=== PATIENT | female | born 1930 | race Asian ===

== ENCOUNTER 2016-10-04 15:08 | Outpatient (CLI) | payer MEDICARE, OTHER ==
[2016-10-04 19:22] LABS: BASOPHILS # (AUTO) 0.1 10^3/uL (0.0-0.1); BASOPHILS % (AUTO) 1.4 %; EOSINOPHILS # (AUTO) 0.1 10^3/uL (0.0-0.7); EOSINOPHILS % (AUTO) 1.7 %; HCT - HEMATOCRIT 34.9 % (37.0-47.0); HGB - HEMOGLOBIN 11.8 g/dL (12.0-16.0); LYMPHOCYTES # (AUTO) 1.3 10^3/uL (1.5-3.5); LYMPHOCYTES % (AUTO) 26.5 %; MEAN CORPUSCULAR HEMOGLOBIN 29.8 pg (27.0-31.0); MEAN CORPUSCULAR HGB CONC 33.9 g/dL (32.0-36.0); MEAN CORPUSCULAR VOLUME 87.9 fL (81.0-99.0); MEAN PLATELET VOLUME 7.9 fL (7.9-10.8); MONOCYTES # (AUTO) 0.4 10^3/uL (0.0-1.0); MONOCYTES % (AUTO) 7.7 %; NEUTROPHILS # (AUTO) 3.1 10^3/uL (1.5-6.6); NEUTROPHILS % (AUTO) 62.7 %; NUCLEATED RED BLOOD CELLS AUTO 0.1 /100WBC; RED BLOOD COUNT 3.97 10^6/uL (4.20-5.40); RED CELL DISTRIBUTION WIDTH 13.7 % (12.0-15.0)
[2016-10-04 19:39] LABS: ALBUMIN/GLOBULIN RATIO 1.5 (1.0-2.2); BILIRUBIN,TOTAL 1.4 mg/dL (0.2-1.0); CALCIUM 8.6 mg/dL (8.5-10.3); POTASSIUM 3.6 mmol/L (3.5-5.0); TOTAL PROTEIN 6.9 g/dL (6.7-8.2)
[2016-10-04 20:14] LABS: HEMOGLOBIN A1C 0.46 g/dL
== END 2016-10-04 15:09 | disposition home or self-care (01) ==
LOC: LAB.WCP 15:08
PROVIDERS: ATTEND Family Medicine
DX: I48.0 Paroxysmal atrial fibrillation (principal); R73.02 Impaired glucose tolerance (oral)
CPT/HCPCS: 36415; 80053; 83036; 85025

== ENCOUNTER 2016-10-18 08:36 | Outpatient (CLI) | payer MEDICARE, OTHER ==
[2016-10-18 13:10] LABS: BASOPHILS % (AUTO) 0.9 %; EOSINOPHILS % (AUTO) 0.9 %; HCT - HEMATOCRIT 30.6 % (37.0-47.0); HGB - HEMOGLOBIN 10.5 g/dL (12.0-16.0); LYMPHOCYTES # (AUTO) 0.7 10^3/uL (1.5-3.5); LYMPHOCYTES % (AUTO) 14.4 %; MEAN CORPUSCULAR HEMOGLOBIN 29.2 pg (27.0-31.0); MEAN CORPUSCULAR HGB CONC 34.4 g/dL (32.0-36.0); MEAN CORPUSCULAR VOLUME 84.9 fL (81.0-99.0); MEAN PLATELET VOLUME 7.6 fL (7.9-10.8); MONOCYTES # (AUTO) 0.4 10^3/uL (0.0-1.0); MONOCYTES % (AUTO) 7.2 %; NEUTROPHILS # (AUTO) 3.8 10^3/uL (1.5-6.6); NEUTROPHILS % (AUTO) 76.6 %; RED CELL DISTRIBUTION WIDTH 13.1 % (12.0-15.0); UNCORRECTED WHITE BLOOD COUNT 4.9 x10^3/uL; WHITE BLOOD COUNT 4.9 x10^3/uL (4.8-10.8)
[2016-10-18 13:29] LABS: ALBUMIN/GLOBULIN RATIO 1.4 (1.0-2.2); BILIRUBIN,TOTAL 1.1 mg/dL (0.2-1.0); CALCIUM 8.7 mg/dL (8.5-10.3); CREATININE 1.3 mg/dL (0.4-1.0); POTASSIUM 3.7 mmol/L (3.5-5.0); TOTAL PROTEIN 6.6 g/dL (6.7-8.2)
== END 2016-10-18 08:37 | disposition home or self-care (01) ==
LOC: LAB.WCP 08:36
PROVIDERS: ATTEND Family Medicine
DX: I12.9 Hypertensive chronic kidney disease with stage 1 through stage 4 chronic kidney disease, or unspecified chronic kidney disease (principal); N18.9 Chronic kidney disease, unspecified
CPT/HCPCS: 36415; 80053; 85025

== ENCOUNTER 2017-03-28 15:00 | Outpatient (CLI) | payer MEDICARE, OTHER | END 2017-03-28 15:01 | disposition home or self-care (01) | LOC: LAB.WCP 15:00 | PROVIDERS: ATTEND Family Medicine | DX: M10.9 Gout, unspecified (principal) | CPT/HCPCS: 36415; 84550 ==

== ENCOUNTER 2017-05-29 16:20 | Outpatient (CLI) | payer MEDICARE, OTHER ==
[2017-05-29 19:51] LABS: HGB - HEMOGLOBIN 10.8 g/dL (12.0-16.0); LYMPHOCYTES # (AUTO) 0.7 10^3/uL (1.5-3.5); LYMPHOCYTES % (AUTO) 16.1 %; MEAN CORPUSCULAR HEMOGLOBIN 29.7 pg (27.0-31.0); MEAN CORPUSCULAR HGB CONC 32.6 g/dL (32.0-36.0); MEAN PLATELET VOLUME 8.4 fL (7.9-10.8); MONOCYTES # (AUTO) 0.2 10^3/uL (0.0-1.0); MONOCYTES % (AUTO) 5.4 %; NEUTROPHILS # (AUTO) 3.5 10^3/uL (1.5-6.6); NEUTROPHILS % (AUTO) 77.5 %; PLT - PLATELET COUNT 204 10^3/uL (130-450); RED BLOOD COUNT 3.63 10^6/uL (4.20-5.40); RED CELL DISTRIBUTION WIDTH 18.9 % (12.0-15.0); WHITE BLOOD COUNT 4.5 x10^3/uL (4.8-10.8)
[2017-05-29 20:21] LABS: ALBUMIN 4.1 g/dL (3.2-5.5); ALBUMIN/GLOBULIN RATIO 1.4 (1.0-2.2); BILIRUBIN,TOTAL 0.9 mg/dL (0.2-1.0); CALCIUM 8.9 mg/dL (8.5-10.3); CREATININE 1.9 mg/dL (0.4-1.0); TOTAL PROTEIN 7.1 g/dL (6.7-8.2)
== END 2017-05-29 16:21 | disposition home or self-care (01) ==
LOC: LAB.WCP 16:20
PROVIDERS: ATTEND Family Medicine
DX: I50.9 Heart failure, unspecified (principal); N18.9 Chronic kidney disease, unspecified; M10.9 Gout, unspecified
CPT/HCPCS: 36415; 80053; 84550; 85025

== ENCOUNTER 2017-06-26 08:00 | Outpatient (CLI) | payer MEDICARE, OTHER ==
[2017-06-26 19:14] LABS: BASOPHILS % (AUTO) 0.9 %; EOSINOPHILS % (AUTO) 0.1 %; HGB - HEMOGLOBIN 10.2 g/dL (12.0-16.0); LYMPHOCYTES # (AUTO) 0.8 10^3/uL (1.5-3.5); LYMPHOCYTES % (AUTO) 16.2 %; MEAN CORPUSCULAR HEMOGLOBIN 30.1 pg (27.0-31.0); MEAN CORPUSCULAR HGB CONC 32.4 g/dL (32.0-36.0); MEAN CORPUSCULAR VOLUME 92.9 fL (81.0-99.0); MEAN PLATELET VOLUME 8.6 fL (7.9-10.8); MONOCYTES # (AUTO) 0.4 10^3/uL (0.0-1.0); MONOCYTES % (AUTO) 7.5 %; NEUTROPHILS # (AUTO) 3.7 10^3/uL (1.5-6.6); NEUTROPHILS % (AUTO) 75.3 %; PLT - PLATELET COUNT 193 10^3/uL (130-450); RED BLOOD COUNT 3.38 10^6/uL (4.20-5.40); RED CELL DISTRIBUTION WIDTH 17.9 % (12.0-15.0); WHITE BLOOD COUNT 4.9 x10^3/uL (4.8-10.8)
[2017-06-26 19:23] LABS: CALCIUM 8.3 mg/dL (8.5-10.3); CREATININE 1.7 mg/dL (0.4-1.0); URIC ACID 3.9 mg/dL (2.6-7.2)
== END 2017-06-26 08:01 | disposition home or self-care (01) ==
LOC: LAB.WCP 08:00
PROVIDERS: ATTEND Family Medicine
DX: I50.9 Heart failure, unspecified (principal); N18.9 Chronic kidney disease, unspecified; M10.9 Gout, unspecified; I12.9 Hypertensive chronic kidney disease with stage 1 through stage 4 chronic kidney disease, or unspecified chronic kidney disease
CPT/HCPCS: 36415; 80048; 84550; 85025

== ENCOUNTER 2017-11-05 18:57 | Outpatient (CLI) | payer MEDICARE, OTHER | END 2017-11-05 18:58 | disposition critical access hospital (66) | LOC: EMS 18:57 | PROVIDERS: ATTEND Surgery | DX: R53.83 Other fatigue (principal); R11.2 Nausea with vomiting, unspecified | CPT/HCPCS: A0425; A0429 ==

== ENCOUNTER 2017-11-05 19:20 | Emergency (ER) | payer MEDICARE, OTHER ==
[2017-11-05 19:51] LABS: BILIRUBIN,URINE NEGATIVE (NEGATIVE); GLUCOSE, URINE (UA) NEGATIVE (NEGATIVE); KETONES,URINE (UA) NEGATIVE (NEGATIVE); LEUKOCYTE ESTERASE, URINE SMALL (NEGATIVE); NITRITE,URINE NEGATIVE (NEGATIVE); OCCULT BLOOD,URINE MODERATE (NEGATIVE); PH,URINE 5.5 PH (5.0-7.5); PROTEIN,URINE NEGATIVE (NEGATIVE); UROBILINOGEN,URINE 1 (NORMAL) E.U./dL (NORMAL)
[2017-11-05 19:52] LABS: CLARITY,URINE HAZY (CLEAR)
[2017-11-05 20:05] LABS: BASOPHILS % (AUTO) 0.2 %; EOSINOPHILS # (AUTO) 0.1 10^3/uL (0.0-0.7); EOSINOPHILS % (AUTO) 0.6 %; HGB - HEMOGLOBIN 10.2 g/dL (12.0-16.0); LYMPHOCYTES # (AUTO) 0.2 10^3/uL (1.5-3.5); LYMPHOCYTES % (AUTO) 2.3 %; MEAN CORPUSCULAR HEMOGLOBIN 32.1 pg (27.0-31.0); MEAN CORPUSCULAR VOLUME 94.4 fL (81.0-99.0); MEAN PLATELET VOLUME 8.7 fL (7.9-10.8); MONOCYTES # (AUTO) 0.6 10^3/uL (0.0-1.0); MONOCYTES % (AUTO) 6.2 %; NEUTROPHILS # (AUTO) 8.8 10^3/uL (1.5-6.6); NEUTROPHILS % (AUTO) 90.7 %; PLT - PLATELET COUNT 152 10^3/uL (130-450); RED BLOOD COUNT 3.19 10^6/uL (4.20-5.40); RED CELL DISTRIBUTION WIDTH 15.3 % (12.0-15.0); WHITE BLOOD COUNT 9.8 x10^3/uL (4.8-10.8)
[2017-11-05] MEDS ORDERED: ONDANSETRON 4 MG/2 ML VIAL IVP STA (20:08)
[2017-11-05] MEDS ORDERED: SODIUM CHLORIDE 0.9% 1,000 ML IV ONE ×2 (20:08→20:40)
--- NOTE | 2017-11-05 20:09 | ED Physician Documentation ---
History of Present Illness - Stated complaint Stated Complaint: VOMITING, FEVER - Chief complaint Chief Complaint: General - History obtained from History obtained from: Patient, Family - History of Present Illness Timing: How many days ago (4) - Additonal information Additional information: Patient is an 87 year old female who is presenting to the emergency department for intermittent nausea and confusion. Patient's symptoms started a couple of days ago. patient had been out in the sun most of the day 4 days ago. that night the patient got a bit confused and was brought to the emergency department the next morning and was diagnosed with dehydration. Family reports patient was better after she went home, and the next day. they state that again at night patient had an episode of confusion and vomiting so they brought the patient in for evaluation. Upon initial evaluation in the emergency department patient was awake, alert in no distress. Review of Systems Constitutional: reports: Fever. denies: Sweats Eyes: reports: Reviewed and negative Cardiac: denies: Chest pain / pressure, Palpitations GI: reports: Nausea, Vomiting. denies: Abdominal Pain, Constipation, Diarrhea Skin: denies: Rash, Lesions Neurologic: reports: Confused PD PAST MEDICAL HISTORY - Past Medical History Cardiovascular: Hypertension, Coronary artery disease, Atrial fibrillation Respiratory: None Endocrine/Autoimmune: Type 2 diabetes GI: None : None HEENT: None Psych: None Musculoskeletal: None Derm: None - Past Surgical History Past Surgical History: Yes General: Other Cardiovascular: CABG HEENT: Other - Present Medications Home Medications: Ambulatory Orders Medication Instructions Recorded Confirmed Aspirin [Adult Aspirin] 11/05/17 Erythromycin Base [Erythromycin 11/05/17 Ophthalmic Ointment] Escitalopram [Lexapro] 11/05/17 Ferrous Sulfate 11/05/17 Furosemide [Lasix] 11/05/17 Ketotifen Fumarate [Alaway] 11/05/17 Latanoprost 0.005% Ophth Drops 11/05/17 [Xalatan Ophth Drops] Melatonin 11/05/17 Metoprolol Succinate [Toprol Xl] 11/05/17 Naproxen Sodium [Aleve] 11/05/17 Nitrofurantoin Monohyd/M-Cryst 100 mg PO BID 5 Days capsule 11/05/17 [Macrobid 100 mg Capsule] Ondansetron Odt [Zofran] 4 mg TL Q6H PRN #14 tablet 11/05/17 Rivaroxaban [Xarelto] 11/05/17 Telmisartan [Micardis] 11/05/17 Timolol 0.25% Ophth Drops 11/05/17 [Timoptic 0.25% Ophth Drops] Triamterene/Hydrochlorothiazid 11/05/17 [Maxzide 37.5 mg-25 mg Tablet] prednisoLONE 1% OPHTH DROPS [Pred 1 drops RIGHTEYE BID 11/05/17 11/05/17 Forte 1% Ophth Drops] - Allergies Allergies/Adverse Reactions: Allergies Allergy/AdvReac Type Severity Reaction Status Date / Time No Known Drug Allergies Allergy Verified 11/23/13 16:19 - Social History Does the pt smoke?: No Smoking Status: Never smoker Does the pt drink ETOH?: No Does the pt have substance abuse?: No - POLST Patient has POLST: No PD ED PE NORMAL - Vitals Vital signs reviewed: Yes - General General: Alert and oriented X 3, No acute distress - HEENT HEENT: Atraumatic - Neck Neck: Supple, no meningeal sign - Cardiac Cardiac: No murmur - Respiratory Respiratory: No respiratory distress, Clear bilaterally - Abdomen Abdomen: Soft, Non tender, Non distended - Derm Derm: Normal color, Warm and dry, No rash - Extremities Extremities: No deformity, No calf tenderness / cord - Neuro Neuro: Alert and oriented X 3, event coordinator marketing and sales 2-12 intact, No motor deficit, Normal speech Eye Opening: Spontaneous Motor: Obeys Commands Verbal: Oriented GCS Score: 15 PD ED PE EXPANDED - Cardiac Cardiac: Irregularly irregular Results - Vitals Vitals: Vital Signs - 24 hr 11/05/17 11/05/17 11/05/17 19:24 19:43 20:23 Temperature 37.4 C Heart Rate 87 96 87 Respiratory 19 17 Rate Blood Pressure 104/60 98/50 L O2 Saturation 95 96 95 11/05/17 21:00 Temperature Heart Rate 77 Respiratory 20 Rate Blood Pressure 93/53 L O2 Saturation 97 Oxygen O2 Source Room air - EKG (time done) 2014 Rate: Rate (enter#) (90) Rhythm: Atrial fibrillation Intervals: RBBB Ischemia: Normal ST segments Compare to prior EKG: Changed from prior EKG Computer interpretation: Agree with computer - Labs Labs: Laboratory Tests 11/05/17 11/05/17 11/05/17 19:40 19:55 19:55 WBC 9.8 RBC 3.19 L Hgb 10.2 L Hct 30.1 L MCV 94.4 MCH 32.1 H MCHC 34.0 RDW 15.3 H Plt Count 152 MPV 8.7 Neut # (Auto) 8.8 H Lymph # (Auto) 0.2 L [place] # (Auto) 0.6 Eos # (Auto) 0.1 Baso # (Auto) 0.0 Absolute Nucleated RBC 0.00 Nucleated RBC % 0.0 PT 26.8 H INR 2.5 H Sodium Potassium Chloride Carbon Dioxide Anion Gap BUN Creatinine Estimated GFR (MDRD) Glucose Lactic Acid Calcium Total Bilirubin AST ALT Alkaline Phosphatase Troponin I Total Protein Albumin Globulin Albumin/Globulin Ratio Lipase Urine Color LT. YELLOW Urine Clarity HAZY Urine pH 5.5 Ur Specific [place] 1.010 Urine Protein NEGATIVE Urine Glucose (UA) NEGATIVE Urine Ketones NEGATIVE Urine Occult Blood MODERATE H Urine Nitrite NEGATIVE Urine Bilirubin NEGATIVE Urine Urobilinogen 1 (NORMAL) Ur Leukocyte Esterase SMALL H Urine RBC 0-5 Urine WBC 6-10 H Ur Squamous Epith Cells NONE SEEN Urine Bacteria Few Ur Microscopic Review INDICATED Urine Culture Comments INDICATED 11/05/17 11/05/17 11/05/17 19:55 19:55 19:55 WBC RBC Hgb Hct MCV MCH MCHC RDW Plt Count MPV Neut # (Auto) Lymph # (Auto) [place] # (Auto) Eos # (Auto) Baso # (Auto) Absolute Nucleated RBC Nucleated RBC % PT INR Sodium 129 L Potassium 3.9 Chloride 90 L Carbon Dioxide 25 Anion Gap 14.0 H BUN 63 H Creatinine 2.4 H Estimated GFR (MDRD) 19 L Glucose 154 H Lactic Acid 1.9 Calcium 8.4 L Total Bilirubin 1.3 H AST 49 H ALT 44 Alkaline Phosphatase 86 Troponin I 0.07 Total Protein 6.5 L Albumin 3.2 Globulin 3.3 Albumin/Globulin Ratio 1.0 Lipase 28 Urine Color Urine Clarity Urine pH Ur Specific [place] Urine Protein Urine Glucose (UA) Urine Ketones Urine Occult Blood Urine Nitrite Urine Bilirubin Urine Urobilinogen Ur Leukocyte Esterase Urine RBC Urine WBC Ur Squamous Epith Cells Urine Bacteria Ur Microscopic Review Urine Culture Comments PD MEDICAL DECISION MAKING - ED course Complexity details: reviewed old records, reviewed results, re-evaluated patient , considered differential, d/w patient, d/w family ED course: Patient was seen and examined at bedside. Patient was well appearing and in no acute distress. labs were drawn and urine was collected. Patient was started on a fluid bolus. ekg was performed and was a fib but no ischemic changes. patient's labs revealed a uti as well as dehydration. patient was treated with macrobid and a second liter of fluid. Patient and family were given detailed discharge and follow up instructions. Patient was able to tolerate PO without difficulty. Patient had no leukocytosis or lactic acidosis. Patient was asking to go home and she was going with her her daughter in [place], who is her child care sitter. Patient was stable for discharge with outpatient follow up. - Sepsis Event Vital Signs: Vital Signs - 24 hr 11/05/17 11/05/17 11/05/17 19:24 19:43 20:23 Temperature 37.4 C Heart Rate 87 96 87 Respiratory 19 17 Rate Blood Pressure 104/60 98/50 L O2 Saturation 95 96 95 11/05/17 21:00 Temperature Heart Rate 77 Respiratory 20 Rate Blood Pressure 93/53 L O2 Saturation 97 Oxygen O2 Source Room air Departure - Departure Disposition: 01 Home, Self Care Clinical Impression: Urinary tract infection Condition: Good Instructions: ED UTI Cystitis Female Follow-Up: Kyrie Lugo MD [Primary Care Provider] - Within 3 Days Prescriptions: Nitrofurantoin Monohyd/M-Cryst [Macrobid 100 mg Capsule] 100 mg PO BID 5 Days capsule Ondansetron Odt [Zofran] 4 mg TL Q6H PRN #14 tablet PRN Reason: Nausea / Vomiting Comments: Your symptoms were caused by a urinary tract infection and dehydration. It is important to stay well hydrated while fighting the infection. you have been prescribed zofran for nausea and macrobid as an antibiotics. You should follow up with your doctor in the next few days to make sure you are doing better. You should return to the emergency department at any time for new, worsening or uncontrollable symptoms.
[2017-11-05 20:10] LABS: INR 2.5 (0.8-1.2); PT - PROTHROMBIN TIME 26.8 secs (9.9-12.6)
[2017-11-05 20:14] LABS: BACTERIA,URINE Few /HPF (None Seen); RBC,URINE 0-5 /HPF (0-5); SQUAMOUS EPITHELIAL CELL,UR NONE SEEN (<= Few)
[2017-11-05 20:17] LABS: ALBUMIN 3.2 g/dL (3.2-5.5); BILIRUBIN,TOTAL 1.3 mg/dL (0.2-1.0); CALCIUM 8.4 mg/dL (8.5-10.3); CREATININE 2.4 mg/dL (0.4-1.0); TOTAL PROTEIN 6.5 g/dL (6.7-8.2)
[2017-11-05] MEDS ORDERED: NITROFURANTOIN MACRO 100 MG CAPSULE PO STA (20:40)
[2017-11-05 21:43] VITALS: BP 92/52
== END 2017-11-05 21:42 | disposition home or self-care (01) ==
LOC: EDUNIT# → ED 19:20
DX: N39.0 Urinary tract infection, site not specified (principal); E86.0 Dehydration; I10 Essential (primary) hypertension; E11.9 Type 2 diabetes mellitus without complications; I48.91 Unspecified atrial fibrillation; R11.2 Nausea with vomiting, unspecified; Z79.82 Long term (current) use of aspirin
CPT/HCPCS: 36415; 80053; 81001; 83605; 83690; 84484; 85025; 85610; 87040; 87086; 87181; 93005; 96361; 96374; 99283; 99284; A9270; 81003

== ENCOUNTER 2017-11-09 08:52 | Emergency (ER) | payer MEDICARE, OTHER ==
[2017-11-09] MEDS ORDERED: SODIUM CHLORIDE 0.9% 1,000 ML IV ONE (09:02)
[2017-11-09 09:57] LABS: BASOPHILS % (AUTO) 0.7 %; EOSINOPHILS # (AUTO) 0.1 10^3/uL (0.0-0.7); EOSINOPHILS % (AUTO) 1.6 %; HGB - HEMOGLOBIN 9.6 g/dL (12.0-16.0); LYMPHOCYTES # (AUTO) 0.5 10^3/uL (1.5-3.5); LYMPHOCYTES % (AUTO) 9.6 %; MEAN CORPUSCULAR HEMOGLOBIN 30.8 pg (27.0-31.0); MEAN CORPUSCULAR HGB CONC 32.4 g/dL (32.0-36.0); MEAN CORPUSCULAR VOLUME 95.1 fL (81.0-99.0); MEAN PLATELET VOLUME 7.8 fL (7.9-10.8); MONOCYTES # (AUTO) 0.4 10^3/uL (0.0-1.0); MONOCYTES % (AUTO) 7.1 %; NEUTROPHILS # (AUTO) 4.6 10^3/uL (1.5-6.6); PLT - PLATELET COUNT 214 10^3/uL (130-450); RED CELL DISTRIBUTION WIDTH 15.1 % (12.0-15.0); WHITE BLOOD COUNT 5.7 x10^3/uL (4.8-10.8)
[2017-11-09 10:17] LABS: CALCIUM 8.9 mg/dL (8.5-10.3); CREATININE 1.7 mg/dL (0.4-1.0)
--- NOTE | 2017-11-09 10:29 | ED Physician Documentation ---
History of Present Illness - Stated complaint Stated Complaint: ARELLANO/BLOOD TEST RECHECK PER ER - Chief complaint Chief Complaint: Abd Pain - Additonal information Additional information: hx from pt 87 female seen 3 days ago for weakness ARELLANO NV workup showed a UTI, she had low BP, borderline lactate was tced with ab dc urine cx grew E coli sens to her macrobid her blood cx 1 bottle gre coag neg staph likely a skin contaminent but was req to come back for a recheck caregiver says she is improved still tied but dec ARELLANO, no NV, tolerating PO, no fever chills, taking her meds Review of Systems Constitutional: reports: Fatigue. denies: Fever, Chills Cardiac: denies: Chest pain / pressure Respiratory: denies: Dyspnea GI: denies: Abdominal Pain, Nausea, Vomiting, Diarrhea : denies: Dysuria Neurologic: reports: Generalized weakness Endocrine: denies: Easy bruising / bleeding Immunocompromised: denies: Immunocompromised PD PAST MEDICAL HISTORY - Past Medical History Cardiovascular: Hypertension, Coronary artery disease, Atrial fibrillation Respiratory: None Endocrine/Autoimmune: Type 2 diabetes GI: None : None HEENT: None Psych: None Musculoskeletal: None Derm: None - Past Surgical History Past Surgical History: Yes General: Other Cardiovascular: CABG HEENT: Other - Present Medications Home Medications: Ambulatory Orders Medication Instructions Recorded Confirmed Aspirin [Adult Aspirin] 11/05/17 Erythromycin Base [Erythromycin 11/05/17 Ophthalmic Ointment] Escitalopram [Lexapro] 11/05/17 Ferrous Sulfate 11/05/17 Furosemide [Lasix] 11/05/17 Ketotifen Fumarate [Alaway] 11/05/17 Latanoprost 0.005% Ophth Drops 11/05/17 [Xalatan Ophth Drops] Melatonin 11/05/17 Metoprolol Succinate [Toprol Xl] 11/05/17 Naproxen Sodium [Aleve] 11/05/17 Nitrofurantoin Monohyd/M-Cryst 100 mg PO BID 5 Days capsule 11/05/17 [Macrobid 100 mg Capsule] Ondansetron Odt [Zofran] 4 mg TL Q6H PRN #14 tablet 11/05/17 Rivaroxaban [Xarelto] 11/05/17 Telmisartan [Micardis] 11/05/17 Timolol 0.25% Ophth Drops 11/05/17 [Timoptic 0.25% Ophth Drops] Triamterene/Hydrochlorothiazid 11/05/17 [Maxzide 37.5 mg-25 mg Tablet] prednisoLONE 1% OPHTH DROPS [Pred 1 drops RIGHTEYE BID 11/05/17 11/05/17 Forte 1% Ophth Drops] - Allergies Allergies/Adverse Reactions: Allergies Allergy/AdvReac Type Severity Reaction Status Date / Time No Known Drug Allergies Allergy Verified 11/23/13 16:19 - Social History Does the pt smoke?: No Smoking Status: Never smoker Does the pt drink ETOH?: No Does the pt have substance abuse?: No - POLST Patient has POLST: No PD ED PE NORMAL - Vitals Vital signs reviewed: Yes - General General: Other (alert cooperative) - Cardiac Cardiac: No: RRR (irreg , known a fib) - Respiratory Respiratory: No respiratory distress, Clear bilaterally - Abdomen Abdomen: Soft, Non tender - Back Back: No CVA TTP - Derm Derm: Normal color - Neuro Neuro: Alert and oriented X 3 Results - Vitals Vitals: Vital Signs - 24 hr 11/09/17 11/09/17 09:05 10:56 Temperature 35.8 C L Heart Rate 63 67 Respiratory 18 20 Rate Blood Pressure 125/63 150/64 H O2 Saturation 100 96 Oxygen O2 Source Room air - Labs Labs: Laboratory Tests 11/09/17 11/09/17 11/09/17 09:43 09:43 09:43 WBC 5.7 RBC 3.10 L Hgb 9.6 L Hct 29.5 L MCV 95.1 MCH 30.8 MCHC 32.4 RDW 15.1 H Plt Count 214 MPV 7.8 L Neut # (Auto) 4.6 Lymph # (Auto) 0.5 L [place] # (Auto) 0.4 Eos # (Auto) 0.1 Baso # (Auto) 0.0 Absolute Nucleated RBC 0.00 Nucleated RBC % 0.0 Sodium 136 Potassium 4.1 Chloride 92 L Carbon Dioxide 30 Anion Gap 14.0 H BUN 53 H Creatinine 1.7 H Estimated GFR (MDRD) 28 L Glucose 102 H Lactic Acid 2.1 Calcium 8.9 Urine Color Urine Clarity Urine pH Ur Specific [place] Urine Protein Urine Glucose (UA) Urine Ketones Urine Occult Blood Urine Nitrite Urine Bilirubin Urine Urobilinogen Ur Leukocyte Esterase Ur Microscopic Review Urine Culture Comments 11/09/17 10:33 WBC RBC Hgb Hct MCV MCH MCHC RDW Plt Count MPV Neut # (Auto) Lymph # (Auto) [place] # (Auto) Eos # (Auto) Baso # (Auto) Absolute Nucleated RBC Nucleated RBC % Sodium Potassium Chloride Carbon Dioxide Anion Gap BUN Creatinine Estimated GFR (MDRD) Glucose Lactic Acid Calcium Urine Color YELLOW Urine Clarity CLEAR Urine pH 7.0 Ur Specific [place] 1.010 Urine Protein NEGATIVE Urine Glucose (UA) NEGATIVE Urine Ketones NEGATIVE Urine Occult Blood NEGATIVE Urine Nitrite NEGATIVE Urine Bilirubin NEGATIVE Urine Urobilinogen 0.2 (NORMAL) Ur Leukocyte Esterase NEGATIVE Ur Microscopic Review NOT INDICATED Urine Culture Comments NOT INDICATED PD MEDICAL DECISION MAKING - ED course ED course: pt on ab her UTI is susceptible to and UA today is clean and her sx are subsiding he blood cx is likely a skin contaminant her creat is improved she is still anemic but not new for her lactate still borderline but BP is better feel safe to dc on her same ab MSE performed seems + blood cx is a contaminant prior UTI is improved on appropriate ab no new life/limb threatening illness or injury identified feel pt stable and safe for dc - Sepsis Event Vital Signs: Vital Signs - 24 hr 11/09/17 11/09/17 09:05 10:56 Temperature 35.8 C L Heart Rate 63 67 Respiratory 18 20 Rate Blood Pressure 125/63 150/64 H O2 Saturation 100 96 Oxygen O2 Source Room air Departure - Departure Disposition: 01 Home, Self Care Clinical Impression: UTI (urinary tract infection) Qualifiers: Urinary tract infection type: site unspecified Hematuria presence: without hematuria Qualified Code(s): N39.0 - Urinary tract infection, site not specified Follow-Up: Kyrie Lugo MD [Primary Care Provider] - Comments: The antibiotic you are on is appropriate for the bacteria causing your urine infection Your blood culture result looks like it is a skin contaminant and not sepsis Your kidney function is better You are anemic but that is not new for you. I think it is safe for you to go home Please continue the antibiotic Follow up with your PMD for a recheck next week. Return to the ER if worse over the weekend
[2017-11-09 10:38] LABS: BILIRUBIN,URINE NEGATIVE (NEGATIVE); GLUCOSE, URINE (UA) NEGATIVE (NEGATIVE); KETONES,URINE (UA) NEGATIVE (NEGATIVE); LEUKOCYTE ESTERASE, URINE NEGATIVE (NEGATIVE); NITRITE,URINE NEGATIVE (NEGATIVE); OCCULT BLOOD,URINE NEGATIVE (NEGATIVE); PROTEIN,URINE NEGATIVE (NEGATIVE); UROBILINOGEN,URINE 0.2 (NORMAL) E.U./dL (NORMAL)
[2017-11-09 10:44] LABS: CLARITY,URINE CLEAR (CLEAR)
[2017-11-09 11:59] VITALS: BP 142/59
== END 2017-11-09 11:55 | disposition home or self-care (01) ==
LOC: ED 08:52
DX: N39.0 Urinary tract infection, site not specified (principal); B96.89 Other specified bacterial agents as the cause of diseases classified elsewhere; I10 Essential (primary) hypertension; D64.9 Anemia, unspecified; E11.9 Type 2 diabetes mellitus without complications; Z79.82 Long term (current) use of aspirin; Z79.1 Long term (current) use of non-steroidal anti-inflammatories (NSAID)
CPT/HCPCS: 36415; 80048; 81001; 81003; 83605; 85025; 87040; 87086; 99283

== ENCOUNTER 2018-01-04 13:01 | Emergency (ER) | payer MEDICARE, OTHER ==
[2018-01-04 13:16] VITALS: BP 112/56
--- NOTE | 2018-01-04 13:56 | ED Physician Documentation ---
History of Present Illness - Stated complaint Stated Complaint: LAB RESULT ABNORMAL - Chief complaint Chief Complaint: General - History obtained from History obtained from: Patient, Caregiver - History of Present Illness Timing: Yesterday (She went in yesterday for doctor's visit and had labs drawn. She was called today and told to come in the emergency department for elevated kidney levels. She feels fine, no shortness of breath or urinary complaints or pedal edema.) Review of Systems Constitutional: denies: Fever, Myalgias, Fatigue Cardiac: denies: Chest pain / pressure, Palpitations Respiratory: denies: Dyspnea, Cough PD PAST MEDICAL HISTORY - Past Medical History Past Medical History: Yes Cardiovascular: Hypertension, Coronary artery disease, Atrial fibrillation Respiratory: None Neuro: Dementia Endocrine/Autoimmune: Type 2 diabetes GI: None : None HEENT: None Psych: None Musculoskeletal: None Derm: None - Past Surgical History Past Surgical History: Yes General: Other Cardiovascular: CABG HEENT: Other - Present Medications Home Medications: Ambulatory Orders Medication Instructions Recorded Confirmed Aspirin [Adult Aspirin] 11/05/17 Erythromycin Base [Erythromycin 11/05/17 Ophthalmic Ointment] Escitalopram [Lexapro] 11/05/17 Ferrous Sulfate 11/05/17 Furosemide [Lasix] 11/05/17 Ketotifen Fumarate [Alaway] 11/05/17 Latanoprost 0.005% Ophth Drops 11/05/17 [Xalatan Ophth Drops] Melatonin 11/05/17 Metoprolol Succinate [Toprol Xl] 11/05/17 Naproxen Sodium [Aleve] 11/05/17 Nitrofurantoin Monohyd/M-Cryst 100 mg PO BID 5 Days capsule 11/05/17 [Macrobid 100 mg Capsule] Ondansetron Odt [Zofran] 4 mg TL Q6H PRN #14 tablet 11/05/17 Rivaroxaban [Xarelto] 11/05/17 Telmisartan [Micardis] 11/05/17 Timolol 0.25% Ophth Drops 11/05/17 [Timoptic 0.25% Ophth Drops] Triamterene/Hydrochlorothiazid 11/05/17 [Maxzide 37.5 mg-25 mg Tablet] prednisoLONE 1% OPHTH DROPS [Pred 1 drops RIGHTEYE BID 11/05/17 11/05/17 Forte 1% Ophth Drops] - Allergies Allergies/Adverse Reactions: Allergies Allergy/AdvReac Type Severity Reaction Status Date / Time No Known Drug Allergies Allergy Verified 01/04/18 13:16 - Social History Does the pt smoke?: No Smoking Status: Never smoker Does the pt drink ETOH?: No Does the pt have substance abuse?: No - Immunizations Immunizations are current?: Yes - POLST Patient has POLST: No PD ED PE NORMAL - Vitals Vital signs reviewed: Yes - General General: Alert and oriented X 3, No acute distress - Cardiac Cardiac: RRR, No murmur - Respiratory Respiratory: No respiratory distress, Clear bilaterally - Abdomen Abdomen: Non tender - Extremities Extremities: No edema - Neuro Neuro: Alert and oriented X 3, Normal speech Results - Vitals Vitals: Vital Signs - 24 hr 01/04/18 13:11 Temperature 36.4 C L Heart Rate 63 Respiratory 18 Rate Blood Pressure 112/56 L O2 Saturation 100 Oxygen O2 Source Room air PD MEDICAL DECISION MAKING - ED course ED course: Her labs were received from [facility]. Notable for BUN of 105 and creatinine of 2.08. This is a much higher UN than normal for her but her creatinine is about at her baseline. She is on Lasix and advised to stop this and follow-up on Monday. - Sepsis Event Vital Signs: Vital Signs - 24 hr 01/04/18 13:11 Temperature 36.4 C L Heart Rate 63 Respiratory 18 Rate Blood Pressure 112/56 L O2 Saturation 100 Oxygen O2 Source Room air Departure - Departure Disposition: Home, Self Care Clinical Impression: Prerenal azotemia Condition: Good Record reviewed to determine appropriate education?: Yes Follow-Up: Tex Roberto MD [Primary Care Provider] - Comments: Stop your furosemide/Lasix for now. Follow-up with your doctor on Monday for recheck and repeat labs. Call him today.
== END 2018-01-04 14:10 | disposition home or self-care (01) ==
LOC: ED 13:01
DX: R79.89 Other specified abnormal findings of blood chemistry (principal); I48.91 Unspecified atrial fibrillation; I11.9 Hypertensive heart disease without heart failure; I25.810 Atherosclerosis of coronary artery bypass graft(s) without angina pectoris; E11.9 Type 2 diabetes mellitus without complications; Z79.01 Long term (current) use of anticoagulants
CPT/HCPCS: 99282; 99283

== ENCOUNTER 2018-02-02 08:00 | Outpatient (CLI) | payer MEDICARE, OTHER ==
[2018-02-02 19:23] LABS: ALBUMIN 3.6 g/dL (3.2-5.5); ALBUMIN/GLOBULIN RATIO 1.6 (1.0-2.2); BILIRUBIN,TOTAL 0.7 mg/dL (0.2-1.0); CALCIUM 8.7 mg/dL (8.5-10.3); CREATININE 1.3 mg/dL (0.4-1.0); TOTAL PROTEIN 5.9 g/dL (6.7-8.2)
== END 2018-02-02 08:01 | disposition home or self-care (01) ==
LOC: LAB.WCP 08:00
PROVIDERS: ATTEND Family Medicine
DX: N18.3 Chronic kidney disease, stage 3 (moderate) (principal)
CPT/HCPCS: 36415; 80053

== ENCOUNTER 2018-03-07 11:49 | Outpatient (CLI) | payer MEDICARE, OTHER | END 2018-03-07 11:50 | disposition home or self-care (01) | LOC: LAB 11:49 | PROVIDERS: ATTEND Family Medicine | DX: R41.82 Altered mental status, unspecified (principal) | CPT/HCPCS: 36415; 83605 ==

== ENCOUNTER 2018-06-08 11:15 | Emergency (ER) | payer MEDICARE, OTHER ==
[2018-06-08 12:14] LABS: MUDS CUTOFF CONCENTRATIONS CUTOFF CONC BELOW:
[2018-06-08 12:16] LABS: BILIRUBIN,URINE NEGATIVE (NEGATIVE); GLUCOSE, URINE (UA) NEGATIVE (NEGATIVE); KETONES,URINE (UA) NEGATIVE (NEGATIVE); LEUKOCYTE ESTERASE, URINE NEGATIVE (NEGATIVE); NITRITE,URINE NEGATIVE (NEGATIVE); OCCULT BLOOD,URINE NEGATIVE (NEGATIVE); PH,URINE 6.5 PH (5.0-7.5); PROTEIN,URINE NEGATIVE (NEGATIVE); UROBILINOGEN,URINE 0.2 (NORMAL) E.U./dL (NORMAL)
[2018-06-08 12:18] LABS: CLARITY,URINE CLEAR (CLEAR)
[2018-06-08 12:28] LABS: AMPHETAMINE SCREEN,URINE NEGATIVE (NEGATIVE); BENZODIAZEPINES SCREEN, URINE NEGATIVE (NEGATIVE); COCAINE SCREEN URINE NEGATIVE (NEGATIVE); METHADONE SCREEN, URINE NEGATIVE (NEGATIVE); METHAMPHETAMINES SCREEN, URINE NEGATIVE (NEGATIVE); OPIATE SCREEN, URINE NEGATIVE (NEGATIVE); OXYCODONE SCREEN, URINE NEGATIVE (NEGATIVE); PROPOXYPHENE SCREEN, URINE NEGATIVE (NEGATIVE); TRICYCLIC ANTIDEPRESSANT,URINE NEGATIVE (NEGATIVE)
--- NOTE | 2018-06-08 12:30 | ED Physician Documentation ---
History of Present Illness - Stated complaint Stated Complaint: DELUSIONS - Chief complaint Chief Complaint: Neuro - Additonal information Additional information: 87-year-old female with a history of dementia who lives at home with familyWas brought to the emergency department for evaluation of delusions and increasing confusion last night. Family noticed that the patient was significantly more confused than normal and agitated and typically this is associated with urinary tract infections. The patient is unable to give any specific history and denies any active pain or discomfort. No reports of fever, cough, shortness of breath or injuries. Review of Systems Unable to obtain: Dementia Constitutional: denies: Fever Respiratory: denies: Cough GI: denies: Vomiting, Diarrhea PD PAST MEDICAL HISTORY - Past Medical History Cardiovascular: Hypertension, Coronary artery disease, Atrial fibrillation Respiratory: None Neuro: Dementia Endocrine/Autoimmune: Type 2 diabetes GI: None : None HEENT: None Psych: None Musculoskeletal: None Derm: None - Past Surgical History Past Surgical History: Yes General: Other Cardiovascular: CABG HEENT: Other - Present Medications Home Medications: Ambulatory Orders Medication Instructions Recorded Confirmed Aspirin [Adult Aspirin] 11/05/17 Erythromycin Base [Erythromycin 11/05/17 Ophthalmic Ointment] Escitalopram [Lexapro] 11/05/17 Ferrous Sulfate 11/05/17 Furosemide [Lasix] 11/05/17 Ketotifen Fumarate [Alaway] 11/05/17 Latanoprost 0.005% Ophth Drops 11/05/17 [Xalatan Ophth Drops] Melatonin 11/05/17 Metoprolol Succinate [Toprol Xl] 11/05/17 Naproxen Sodium [Aleve] 11/05/17 Nitrofurantoin Monohyd/M-Cryst 100 mg PO BID 5 Days capsule 11/05/17 [Macrobid 100 mg Capsule] Ondansetron Odt [Zofran] 4 mg TL Q6H PRN #14 tablet 11/05/17 Rivaroxaban [Xarelto] 11/05/17 Telmisartan [Micardis] 11/05/17 Timolol 0.25% Ophth Drops 11/05/17 [Timoptic 0.25% Ophth Drops] Triamterene/Hydrochlorothiazid 11/05/17 [Maxzide 37.5 mg-25 mg Tablet] prednisoLONE 1% OPHTH DROPS [Pred 1 drops RIGHTEYE BID 11/05/17 11/05/17 Forte 1% Ophth Drops] - Allergies Allergies/Adverse Reactions: Allergies Allergy/AdvReac Type Severity Reaction Status Date / Time No Known Drug Allergies Allergy Verified 01/04/18 13:16 - Social History Does the pt smoke?: No Smoking Status: Never smoker Does the pt drink ETOH?: No Does the pt have substance abuse?: No - Immunizations Immunizations are current?: Yes - POLST Patient has POLST: No PD ED PE NORMAL - General General: Other (Frail 87-year-old female who is pleasant and appears to be in no acute distress but is confused) - HEENT HEENT: Atraumatic - Cardiac Cardiac: No: RRR (Atrial fibrillation with rate controlled rhythm) - Respiratory Respiratory: No respiratory distress, Clear bilaterally - Abdomen Abdomen: Soft, Non tender, Non distended - Back Back: No spinal TTP - Derm Derm: Normal color - Extremities Extremities: No deformity, Normal ROM s pain - Neuro Neuro: Other (The patient's alert, follows commands and has equal motor strength in the upper and lower extremities. There is no acute focal neurologic changes) - Psych Psych: Normal mood Results - Vitals Vitals: Vital Signs - 24 hr 06/08/18 06/08/18 11:27 12:56 Temperature 36.5 C Heart Rate 60 58 L Respiratory 16 18 Rate Blood Pressure 133/71 H 122/55 L O2 Saturation 97 98 Oxygen O2 Source Room air - Labs Labs: Laboratory Tests 06/08/18 06/08/18 06/08/18 11:55 12:30 12:30 WBC 6.5 RBC 3.30 L Hgb 10.7 L Hct 32.2 L MCV 97.6 MCH 32.4 H MCHC 33.2 RDW 15.5 H Plt Count 180 MPV 8.7 PT 31.6 H INR 2.9 H APTT 46.1 H VBG Total Hgb VBG Oxyhemoglobin VBG Carboxyhemoglobin VBG Methemoglobin Sodium Potassium Chloride Carbon Dioxide Anion Gap BUN Creatinine Estimated GFR (MDRD) Glucose Lactic Acid Calcium Total Bilirubin AST ALT Alkaline Phosphatase Total Creatine Kinase Troponin I Total Protein Albumin Globulin Albumin/Globulin Ratio Lipase Urine Color YELLOW Urine Clarity CLEAR Urine pH 6.5 Ur Specific [place] 1.010 Urine Protein NEGATIVE Urine Glucose (UA) NEGATIVE Urine Ketones NEGATIVE Urine Occult Blood NEGATIVE Urine Nitrite NEGATIVE Urine Bilirubin NEGATIVE Urine Urobilinogen 0.2 (NORMAL) Ur Leukocyte Esterase NEGATIVE Ur Microscopic Review NOT INDICATED Urine Culture Comments NOT INDICATED Salicylates Urine Opiates Screen NEGATIVE Ur Oxycodone Screen NEGATIVE Urine Methadone Screen NEGATIVE Ur Propoxyphene Screen NEGATIVE Acetaminophen Ur Barbiturates Screen NEGATIVE Ur Tricyclics Screen NEGATIVE Ur Phencyclidine Scrn NEGATIVE Ur Amphetamine Screen NEGATIVE U Methamphetamines Scrn NEGATIVE U Benzodiazepines Scrn NEGATIVE Urine Cocaine Screen NEGATIVE U Cannabinoids Screen NEGATIVE Ethyl Alcohol 06/08/18 06/08/18 06/08/18 12:30 12:30 12:30 WBC RBC Hgb Hct MCV MCH MCHC RDW Plt Count MPV PT INR APTT VBG Total Hgb VBG Oxyhemoglobin VBG Carboxyhemoglobin VBG Methemoglobin Sodium 140 Potassium 3.8 Chloride 100 L Carbon Dioxide 26 Anion Gap 14.0 H BUN 43 H Creatinine 1.2 H Estimated GFR (MDRD) 42 L Glucose 184 H Lactic Acid 1.2 Calcium 8.8 Total Bilirubin 0.9 AST 26 ALT 13 Alkaline Phosphatase 53 Total Creatine Kinase 230 Troponin I < 0.04 Total Protein 6.1 L Albumin 3.8 Globulin 2.3 Albumin/Globulin Ratio 1.7 Lipase 34 Urine Color Urine Clarity Urine pH Ur Specific [place] Urine Protein Urine Glucose (UA) Urine Ketones Urine Occult Blood Urine Nitrite Urine Bilirubin Urine Urobilinogen Ur Leukocyte Esterase Ur Microscopic Review Urine Culture Comments Salicylates < 6.0 Urine Opiates Screen Ur Oxycodone Screen Urine Methadone Screen Ur Propoxyphene Screen Acetaminophen < 10 L Ur Barbiturates Screen Ur Tricyclics Screen Ur Phencyclidine Scrn Ur Amphetamine Screen U Methamphetamines Scrn U Benzodiazepines Scrn Urine Cocaine Screen U Cannabinoids Screen Ethyl Alcohol < 5.0 06/08/18 13:00 WBC RBC Hgb Hct MCV MCH MCHC RDW Plt Count MPV PT INR APTT VBG Total Hgb 12.2 VBG Oxyhemoglobin 66 L VBG Carboxyhemoglobin 0.8 VBG Methemoglobin 0.1 Sodium Potassium Chloride Carbon Dioxide Anion Gap BUN Creatinine Estimated GFR (MDRD) Glucose Lactic Acid Calcium Total Bilirubin AST ALT Alkaline Phosphatase Total Creatine Kinase Troponin I Total Protein Albumin Globulin Albumin/Globulin Ratio Lipase Urine Color Urine Clarity Urine pH Ur Specific [place] Urine Protein Urine Glucose (UA) Urine Ketones Urine Occult Blood Urine Nitrite Urine Bilirubin Urine Urobilinogen Ur Leukocyte Esterase Ur Microscopic Review Urine Culture Comments Salicylates Urine Opiates Screen Ur Oxycodone Screen Urine Methadone Screen Ur Propoxyphene Screen Acetaminophen Ur Barbiturates Screen Ur Tricyclics Screen Ur Phencyclidine Scrn Ur Amphetamine Screen U Methamphetamines Scrn U Benzodiazepines Scrn Urine Cocaine Screen U Cannabinoids Screen Ethyl Alcohol - Rads (name of study) CXR Radiology: Final report received, See rad report (1. No evidence of active cardiopulmonary disease. ) PD MEDICAL DECISION MAKING - ED course ED course: The patient's workup does not reveal any acute etiology that would necessitate admission to the hospital. The patient's episode of confusion and Agitation last night may be secondary to the underlying dementia worsening. Presently, the patient appears pleasant and directable and will be discharged home with her granddaughter who lives with her. The patient will follow up with primary care for ongoing outpatient management. I discussed warning signs and recommended returning for any worsening or any concerns Departure - Departure Disposition: 01 Home, Self Care Clinical Impression: Confusion, Agitation Condition: Good Instructions: Dementia, Dementia Patients Safety Tips, Dementia Patients Caregiver Follow-Up: Tex Roberto MD [Primary Care Provider] - Within 1 week Comments: Please return for any worsening or any concerns
[2018-06-08 12:45] LABS: INR 2.9 (0.8-1.2); PT - PROTHROMBIN TIME 31.6 secs (9.9-12.6)
[2018-06-08 12:53] LABS: HGB - HEMOGLOBIN 10.7 g/dL (12.0-16.0); MEAN CORPUSCULAR HEMOGLOBIN 32.4 pg (27.0-31.0); MEAN CORPUSCULAR HGB CONC 33.2 g/dL (32.0-36.0); MEAN CORPUSCULAR VOLUME 97.6 fL (81.0-99.0); MEAN PLATELET VOLUME 8.7 fL (7.9-10.8); PLT - PLATELET COUNT 180 10^3/uL (130-450); RED CELL DISTRIBUTION WIDTH 15.5 % (12.0-15.0); WHITE BLOOD COUNT 6.5 x10^3/uL (4.8-10.8)
[2018-06-08 12:55] LABS: ACETAMINOPHEN < 10 ug/mL (10-30); ALBUMIN 3.8 g/dL (3.2-5.5); ALBUMIN/GLOBULIN RATIO 1.7 (1.0-2.2); ALKALINE PHOSPHATASE 53 IU/L (42-121); ALT ALANINE AMINOTRANSFERASE 13 IU/L (10-60); AST ASPARTATE AMINOTRANSFERASE 26 IU/L (10-42); BILIRUBIN,TOTAL 0.9 mg/dL (0.2-1.0); BUN - BLOOD UREA NITROGEN 43 mg/dL (6-20); CALCIUM 8.8 mg/dL (8.5-10.3); CARBON DIOXIDE - CO2 26 mmol/L (21-32); CHLORIDE 100 mmol/L (101-111); CK- CREATINE KINASE 230 IU/L (22-269); CREATININE 1.2 mg/dL (0.4-1.0); GFR - MDRD 42 (>89); GLUCOSE 184 mg/dL (70-100); LIPASE 34 U/L (22-51); SALICYLATE < 6.0 mg/dL; SODIUM 140 mmol/L (135-145); TOTAL PROTEIN 6.1 g/dL (6.7-8.2)
[2018-06-08 12:56] LABS: ABNORMAL LYMPHS % (MANUAL) 0 %; BAND NEUTROPHILS % (MANUAL) 0 %
[2018-06-08 12:57] VITALS: BP 122/55
--- NOTE | 2018-06-08 13:00 | XRAY Report ---
Reason: ams Procedure Date: 06/08/2018 Accession Number: [id number] / [id number] Procedure: XR - Chest 1 View X-Ray CPT Code: 85672 FULL RESULT: EXAM: CHEST RADIOGRAPHY EXAM DATE: 06/08/2018 12:41 PM. CLINICAL HISTORY: Altered mental status. COMPARISON: XR CHEST PA AND LAT 08/19/2008 3:52 PM. TECHNIQUE: Upright AP view. FINDINGS: Lungs/Pleura: No focal opacities evident. No pleural effusion. No pneumothorax. Mediastinum: Mild cardiomegaly, sternotomy wires, mitral valve ring annuloplasty, moderate aortic arch calcification, as before. Other: None. IMPRESSION: 1. No evidence of active cardiopulmonary disease. 2. Mild cardiomegaly, as before. RADIA
[2018-06-08 13:32] LABS: BASOPHILS # (MANUAL) 0.1 10^3/uL (0-0.1); BASOPHILS % (MANUAL) 2 %; LYMPHOCYTES % (MANUAL) 15 %; MONOCYTES # (MANUAL) 0.3 10^3/uL (0.0-1.0); NEUTROPHILS # (MANUAL) 5.1 10^3/uL (1.5-6.6); NEUTROPHILS % (MANUAL) 78 %
[2018-06-08 13:33] LABS: PLATELET ESTIMATE, MANUAL NORMAL (130-450,000) (NORMAL); PLATELET MORPHOLOGY NORMAL APPEARANCE (NORMAL); RBC MORPHOLOGY (MULTIPLE) NORMAL APPEARANCE (NORMAL)
[2018-06-08 13:34] LABS: DIFFERENTIAL COMMENT MANUAL DIFFERENTIAL
== END 2018-06-08 13:45 | disposition home or self-care (01) ==
LOC: ED 11:15
DX: R41.0 Disorientation, unspecified (principal); R45.1 Restlessness and agitation; F03.90 Unspecified dementia, unspecified severity, without behavioral disturbance, psychotic disturbance, mood disturbance, and anxiety; I44.30 Unspecified atrioventricular block; I48.92 Unspecified atrial flutter; I10 Essential (primary) hypertension; I25.10 Atherosclerotic heart disease of native coronary artery without angina pectoris; E11.9 Type 2 diabetes mellitus without complications; Z95.1 Presence of aortocoronary bypass graft
CPT/HCPCS: 36415; 71045; 80053; 80306; 80307; 80320; 80329; 81001; 81003; 82375; 82550; 83605; 83690; 84484; 85025; 85610; 85730; 87086; 93005; 99283; 99284